=== PATIENT | female | born 1965 | race African-American/Black ===

== ENCOUNTER → 2021-06-27 09:03 | Outpatient (BNVA) | payer OTHER, SELFPAY | PROVIDERS: Visit Provider Physician Assistant | DX: S39.012A Strain of muscle, fascia and tendon of lower back, initial encounter (principal); Y04.2XXA Assault by strike against or bumped into by another person, initial encounter | CPT/HCPCS: 99203 ==

== ENCOUNTER → 2021-08-29 14:50 | Outpatient (BNVA) | payer OTHER, SELFPAY | PROVIDERS: Visit Provider Physician Assistant | DX: M54.41 Lumbago with sciatica, right side (principal) | CPT/HCPCS: 99213 ==

== ENCOUNTER → 2021-09-12 | Outpatient (BNVA) | payer OTHER, SELFPAY | PROVIDERS: Visit Provider Physician Assistant | DX: Z13.89 Encounter for screening for other disorder (principal) | CPT/HCPCS: 99214 ==

== ENCOUNTER 2021-09-19 12:00 | Outpatient (REF) | payer OTHER, SELFPAY ==
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
== END 2021-09-19 12:01 | disposition home or self-care (01) ==
LOC: HO.MRI 12:00
PROVIDERS: Visit Provider Internal Medicine
DX: M54.50 Low back pain, unspecified (principal)
CPT/HCPCS: 72148

== ENCOUNTER → 2021-09-26 15:34 | Outpatient (BNVA) | payer OTHER, SELFPAY | PROVIDERS: Visit Provider Physician Assistant | DX: S34.105D Unspecified injury to L5 level of lumbar spinal cord, subsequent encounter (principal); S34.13 Other and unspecified injury to sacral spinal cord; X58.XXXD Exposure to other specified factors, subsequent encounter; M54.50 Low back pain, unspecified | CPT/HCPCS: 99214 ==

== ENCOUNTER → 2021-10-03 09:37 | Outpatient (BNVA) | payer OTHER, SELFPAY | PROVIDERS: Visit Provider Physician Assistant | DX: G54.4 Lumbosacral root disorders, not elsewhere classified (principal) | CPT/HCPCS: 99213 ==

== ENCOUNTER → 2021-10-24 14:06 | Outpatient (BNVA) | payer OTHER, SELFPAY | PROVIDERS: Visit Provider Physician Assistant | DX: S34.105D Unspecified injury to L5 level of lumbar spinal cord, subsequent encounter (principal); S34.13 Other and unspecified injury to sacral spinal cord; X58.XXXD Exposure to other specified factors, subsequent encounter | CPT/HCPCS: 99214 ==

== ENCOUNTER → 2021-11-21 13:59 | Outpatient (BNVA) | payer SELFPAY | PROVIDERS: Visit Provider Physician Assistant | DX: S34.105D Unspecified injury to L5 level of lumbar spinal cord, subsequent encounter (principal); S34.13 Other and unspecified injury to sacral spinal cord; Y04.2XXD Assault by strike against or bumped into by another person, subsequent encounter | CPT/HCPCS: 99214 ==

== ENCOUNTER → 2021-12-19 15:41 | Outpatient (BNVA) | payer OTHER, SELFPAY | PROVIDERS: Visit Provider Physician Assistant | DX: G54.4 Lumbosacral root disorders, not elsewhere classified (principal) | CPT/HCPCS: 99213 ==